=== PATIENT | male | born 1955 | race Caucasian/White ===

== ENCOUNTER 2017-03-08 18:55 | Observation (INO) | payer BC ==
[~2017-03-08] VITALS: Ht 177.8 cm; Wt 85.5 kg
--- NOTE | ~2017-03-08 | HEMODYNAMI ---
PATIENT:BURKE CORTEZ MEDICAL RECORD: [id number] : 55 LOCATION:[facility] D.2119 [facility]# [id number] ADMISSION DATE: 03/08/17 Generatedon:03/10/20179:33 Patient name: BURKE CORTEZ Patient #: [id number] : 1955 Date of study: 03/10/2017 Page: Of Hemodynamic Procedure Report Patient Data Patient Demographics Procedure consent was obtained First Name: BURKE Gender: Male Last Name: DANA : 1955 Middle Initial: R Age: 61 year(s) Patient #: [id number] Race: SSN: [id number] Additional ID: [id number] Contact details Address: [address] [place] [address] State: [place] City: [place] Zip code: [address] Past Medical History Allergies: No known allergies Admission Admission Data Admission Date: 03/08/2017 Admission Time: 22:22 Arrival Date: 03/10/2017 Arrival Time: 22:22 Admit Source: Other Insurance Payor: Private Room #: D.2119 health insurance Lab Results Lab Result Date: 03/10/2017 Lab Result Time: 0:00 Biochemistry Name Units Result Min Max BUN mg/dl 15 --(--*-)-- 7 18 Creatinine mg/dl 1.1 --(--*-)-- 0.6 1.3 CBC Name Units Result Min Max Hemoglobin g/dl 11.9 *-(----)-- 13.5 17.5 Procedure Procedure Types Cath Procedure Diagnostic Procedure LHC LHC w/Coronaries w/Grafts PCI Procedure SVG-BMS/BLANCO Initial Miscellaneous Procedures Moderate Sedation up to 30 minutes Procedure Description Procedure Date Procedure Date: 03/10/2017 Procedure Start Time: 9:12 Procedure End Time: 9:28 Procedure Staff Name Function Wyatt Franks MD Performing Physician Isidra Bagley RT Scrub Martina Khan RN Nurse Moira Bret RT Monitor Procedure Data Cath Procedure Fluoroscopy Diagnostic fluoroscopy Total fluoroscopy Time: 4.1 time: 4.1 min min Diagnostic fluoroscopy Total fluoroscopy dose: 603 dose: 603 mGy mGy Contrast Material Contrast Material Type Amount (ml) Isovue 370 100 Entry Location Entry Primary Successful Side Size Upsize Upsize Entry Closure Succes sful Closure Location (Fr) 1 (Fr) 2 (Fr) Remarks Device Remarks Femoral Right 5 Fr 6 Fr Exoseal artery Short Estimated blood loss: 5 ml Diagnostic catheters Device Type Used For End Catheter Placement Cordis 5Fr Pigtail LV Angiography Catheter (MP) Cordis 5Fr JL 4.0 Left Coronary Catheter (MP) Angiography Diagnostic Infinity 5Fr Multi-vessel AR 2 MOD catheter Angiography Procedure Complications No complications Procedure Medications Medication Administration Route Dosage Oxygen NC 2 l/min Lidocaine 2% added to field 20 Heparin Flush Bag added to field 2 bags (1000units/500ml NS) 0.9% NaCl I.V. 100 ml/hr Versed I.V. 1 mg Fentanyl I.V. 50 mcg Versed I.V. 1 mg Fentanyl I.V. 50 mcg Fentanyl I.V. 50 mcg Heparin Bolus I.V. 5000 units Effient P.O. 60 mg Hemodynamics Rest HGB: 11.9 (g/dl) Heart Rate: 63 (bpm) Pressure Samples Time Site Value (mmHg) Purpose Heart Use Rate(bpm) 9:14 LV 138/15,29 Snapshot 56 Snapshots Pre Cath Intra NCS Post Cath Vital Signs Time Heart Resp SPO2 etCO2 [id number] NIBP (mmHg) Rhythm Pain Sedation Rate (ipm) (%) (mmHg) (mmHg) Status Level (bpm) 8:43:09 62 21 97 0 0 156/71(126) NSR 0 (11) 10(A) , No pain 8:47:33 61 24 97 0 0 139/66(112) NSR 0 (11) 10(A) , No pain 8:51:53 59 19 96 0 0 128/64(96) NSR 0 (11) 10(A) , No pain 8:56:09 56 17 94 0 0 127/64(105) NSR 0 (11) 10(A) , No pain 9:00:27 59 16 96 0 0 128/56(98) NSR 0 (11) 10(A) , No pain 9:04:43 55 16 95 0 0 117/61(96) NSR 0 (11) 9(A) , No pain 9:08:55 59 18 95 0 0 114/65(89) NSR 0 (11) 9(A) , No pain 9:13:09 56 17 94 0 0 115/52(99) NSR 0 (11) 9(A) , No pain 9:18:12 62 16 94 0 0 116/60(94) NSR 0 (11) 9(A) , No pain 9:22:24 67 16 95 0 0 112/61(94) NSR 0 (11) 9(A) , No pain 9:26:34 62 17 96 0 0 114/62(87) NSR 0 (11) 10(A) , No pain Medications Time Medication Route Dose Verified Delivered Reason Notes Effectiveness by by 8:48:31 Oxygen NC 2 Wyatt Buffie used for l/min Golden Khan RN procedure 8:48:39 Lidocaine 2% added 20ml Wyatt Wyatt for local to vial Golden Franks MD anesthetic field 8:48:45 Heparin Flush added 2 Wyatt Wyatt used for Bag to bags Golden Franks MD procedure (1000units/500ml field NS) 8:48:54 0.9% NaCl I.V. 100 Wyatt Buffie Per physician ml/hr Golden Khan RN 8:58:48 Versed I.V. 1 mg Wyatt Buffie for sedation Golden Khan RN 8:58:55 Fentanyl I.V. 50 Wyatt Buffie for sedation mcg Golden Khan RN 9:06:39 Versed I.V. 1 mg Wyatt Buffie for sedation Golden Khan RN 9:06:43 Fentanyl I.V. 50 Wyatt Buffie for sedation mcg Golden Khan RN 9:17:00 Fentanyl I.V. 50 Wyatt Buffie for sedation mcg Golden Khan RN 9:22:22 Heparin Bolus I.V. 5000 Wyatt Buffie for verifie d units Golden Khan RN anticoagulation with dr franks 9:29:44 Effient P.O. 60 mg Wyatt Buffie for Golden Khan RN antiplatelet therapy Procedure Log Time Note 8:25:26 Informed consent obtained and on chart 8:29:20 Admit Source: Other 8:29:32 Arrival Date: 03/10/2017 10:22:00 PM 8:29:41 Insurance Payor : Private health insurance 8:30:10 Diagnostic Cath Status : Elective 8:30:31 Martina Khan RN sent for patient. Start room use. 8:30:33 Time tracking: Regular hours 8:30:38 Plan of Care:Hemodynamics will remain stable., Cardiac rhythm will remain stable., Comfort level will be maintained., Respiratory function will remain adequate., Patient/ family verbilizes understanding of procedure., Procedure tolerated without complication., Recovers from procedure without complications.. 8:41:54 Patient received from Med II to CCL 1 Alert and oriented. Tansferred to table in Supine position. 8:41:55 Warm blankets applied, and ricky hugger turned on for patient comfort. 8:41:55 Correct patient and procedure confirmed by team. 8:41:56 ECG and BP/O2 sat monitors applied to patient. 8:41:56 Vital chart was started 8:41:58 Baseline sample Acquired. 8:42:01 Rhythm: sinus rhythm 8:42:03 Full Disclosure recording started 8:42:34 H&P Date Dictated: 03/10/2017 New H&P dictated by physician.. 8:42:36 Pre-procedure instructions explained to patient. 8:42:36 Pre-op teaching completed and patient verbalized understanding. 8:42:37 Family in waiting room. 8:42:39 Patient NPO since Midnight. 8:42:48 Is the patient allergic to Iodine/contrast media? No. 8:42:50 Was the patient premedicated? No 8:43:01 Patient diabetic? No. 8:43:03 Is patient on blood thinner?No 8:43:08 Previous problem with sedation/anesthesia? No ? 8:43:10 Snore? Yes 8:43:12 Sleep apnea? No 8:43:14 Deviated septum? No 8:43:14 Opens mouth fully? Yes 8:43:15 Sticks out tongue? Yes 8:43:17 Airway obstruction? No ? 8:43:21 Dentures? No ? 8:43:25 Pre procedure: right dorsailis pedis pulse 1+ Palpable, but thready & weak; easily obliterated 8:43:27 Patient pain scale 0/10 ?. 8:43:35 IV patent on arrival in right antecubital with 0.9% NaCl at [facility]. 8:46:22 Lab Result : BUN 15 mg/dl 8:46:22 Lab Result : Hemoglobin 11.9 g/dl 8:46:22 Lab Result : Creatinine 1.1 mg/dl 8:46:27 Lab results completed and on chart. 8:46:34 Right groin area was prepped with chlora-prep and draped in sterile fashion 8:46:35 Alarms reviewed by R. N. 8:46:35 Sharps counted by scrub and verified by R.N. 8:48:31 Oxygen 2 l/min NC was administered by Martina Khan RN; used for procedure; 8:48:39 Lidocaine 2% 20ml vial added to field was administered by Wyatt Franks MD; for local anesthetic; 8:48:45 Heparin Flush Bag (1000units/500ml NS) 2 bags added to field was administered by Wyatt Franks MD; used for procedure; 8:48:54 0.9% NaCl 100 ml/hr I.V. was administered by Martina Khan RN; Per physician; 8:56:59 Physician arrived 8:56:59 --------ALL STOP TIME OUT------ 8:57:00 Final Timeout: patient, procedure, and site verified with staff and physician. All members of the team are in agreement. 8:57:02 Right groin site verified by team. 8:57:05 Physical assessment completed. ASA score P 2 - A patient with mild systemic disease as per Wyatt Franks MD. 8:57:10 Sedation plan: IV Moderate Sedation Versed, Fentanyl 8:57:14 Use device set Femoral Dx 8:57:15 Acist Syringe opened to sterile field. 8:57:16 Bag Decanter opened to sterile field. 8:57:16 Medline Cath Pack opened to sterile field. 8:57:17 Terumo 5Fr [place] Sheath opened to sterile field. 8:57:17 St Shoaib 260cm J .035 wire opened to sterile field. 8:57:19 Acist Hand Control opened to sterile field. 8:57:19 Acist Manifold opened to sterile field. 8:57:20 Diagnostic Infinity 5Fr Multipack catheter opened to sterile field. 8:57:20 Tegaderm 4 x 4 opened to sterile field. 8:58:06 Zero performed for pressure channel P1 8:58:48 Versed 1 mg I.V. was administered by Martina Khan RN; for sedation; 8:58:55 Fentanyl 50 mcg I.V. was administered by Martina Khan RN; for sedation; 9:01:30 Procedure type changed to Cath procedure, Diagnostic procedure, LHC, LHC w/Coronaries w/Grafts, PCI procedure, SVG-BMS/BLANCO Initial, Miscellaneous Procedures, Moderate Sedation up to 30 minutes 9:06:39 Versed 1 mg I.V. was administered by Martina Khan RN; for sedation; 9:06:43 Fentanyl 50 mcg I.V. was administered by Martina Khan RN; for sedation; 9:12:31 Procedure started. 9:12:35 Local anesthetic to right femoral artery with Lidocaine 2% by Wyatt Franks MD.INITIAL ACCESS ONLY 9:12:48 A 5 Fr sheath was inserted into the Right Femoral artery 9:13:35 A Cordis 5Fr Pigtail Catheter (MP) was advanced over the wire and used for LV Angiography. 9:14:39 LV hemodynamics recorded. 9:14:40 LV gram done using HOFF 9:14:43 Injector settings: Ml/sec: 5, Volume: 15, 9:14:53 EF : 20 % 9:15:00 Catheter removed. 9:15:05 A Cordis 5Fr JL 4.0 Catheter (MP) was advanced over the wire and used for Left Coronary Angiography. 9:17:00 Fentanyl 50 mcg I.V. was administered by Martina Khan RN; for sedation; 9:17:20 LCA angiography performed. 9:17:23 Injector settings: Ml/sec: 3, Volume: 6, 9:17:28 HUMPHREY angiography performed. 9:19:33 Catheter removed. 9:19:53 A Diagnostic Infinity 5Fr AR 2 MOD catheter was advanced over the wire and used for Multi-vessel Angiography. 9:20:11 SVG to RCA angiography performed. 9:20:25 Injector settings: Ml/sec: 3, Volume: 6, 9:20:40 Catheter removed. 9:21:11 Danielson Whisper J 300cm 0.014 guide wire opened to sterile field. 9:21:11 BrandBeautronic Launcher 6Fr AR 2.0 guide catheter opened to sterile field. 9:21:12 Merit BasixCompak Inflation Kit opened to sterile field. 9:21:13 Terumo 6Fr [place] Sheath opened to sterile field. 9:22:22 Heparin Bolus 5000 units I.V. was administered by Martina Khan RN; for anticoagulation; verified with dr franks 9:22:29 Sheath upsized to a 6 Fr Short. 9:22:34 6 Fr ar 2 guide catheter was inserted over the wire 9::40 whisper wire advanced. 9:24:20 Wire advanced across lesion. 9:24:44 Inflation Number: 1 A BrandBeautronic Resolute 2.25 X 14 stent was prepped and advanced across the Aorta Right -> Dist RCA. The stent was deployed at 17 MARKELL for 0:10 (min:sec). 9:25:36 Stent catheter was removed intact over wire. 9:25:37 Wire removed. 9:25:38 Guide catheter removed. 9:25:50 Cordis 6Fr Exoseal opened to sterile field. 9:26:07 Sheath removed intact; hemostasis achieved with Exoseal to the Right Femoral artery. 9:26:09 Procedure ended.(Physican Out) 9:27:06 Fluoroscopy time 04.10 minutes. 9:27:11 Flurop Dose total: 603 9:27:11 Fluoroscopy dose: 603 mGy 9:27:16 Contrast amount:Isovue 370 100ml. 9:27:18 Sharps counted by scrub and verified by R.N. 9:27:19 Insertion/operative site no bleeding no hematoma. 9:27:22 Post-op/insertion site Right Femoral artery dressed using a 4 x 4 and Tegaderm. 9:27:27 Post right femoral artery:stable 9:27:29 Post Procedure Pulses reassessed and unchanged 9:27:33 Post procedure rhythm: unchanged. 9:27:35 Estimated blood loss: 5 ml 9:27:38 Post procedure instruction explained to patient.Patient verbalizes understanding. 9:27:42 Patient needs reinforcement of post procedure teaching. 9:27:43 Procedure and supply charges have been captured, reviewed, submitted and are correct. 9:27:59 Procedure Complication : No complications 9:28:02 Vital chart was stopped 9:28:02 See physician's report for complete and final results. 9:28:05 Report given to Med II. 9:28:08 Patient transfered to [facility] II with Stretcher. 9:28:17 Procedure ended. 9:28:17 Full Disclosure recording stopped 9:28:24 ACC-PCI Only Patient was given prescriptions, or instructed by Wyatt Franks MD to start/continue the following medications upon discharge: Effient 9:28:26 End room use (Document Last) 9:29:44 Effient 60 mg P.O. was administered by Martina Khan RN; for antiplatelet therapy; Intervention Summary Intervention Notes Time ActionType Lesion and Equipment Action# Pressure Duration Attributes Used 9:24:44 Place stent Aorta Right Medtronic 1 17 00:10 -> Dist RCA Resolute 2.25 X 14 stent Device Usage Item Name Manufacture Quantity Catalog Hospital Part Current Minimal Lot# / Number Charge Number Stock Stock Serial# Code Acist Acist 1 09781 258828 313636 787210 20 Syringe Medical Systems Inc Bag Microtek 1 2002S 744040 03085 929595 5 [employer] Medline Cardinal 1 [id number] 774363 28038 558810 5 Cath Pack Health Terumo 5Fr Terumo 1 TWO100 234110 989433 335970 [address] Shoaib 1 775153 007211 768018 095591 30 260cm J .035 wire Acist Hand Acist 1 51836 068840 585903 977459 5 Control Medical Systems Inc Acist Acist 1 10902 362003 659945 531338 5 Manifold Medical Systems Inc Diagnostic Cardinal 1 [id number] 881199 47233 303850 30 Infinity Health 5Fr Multipack catheter Tegaderm 4 3M 1 1626W 898847 289141 532581 5 x 4 Cordis 5Fr Cardinal 1 824019 5 Pigtail Health Catheter (MP) Cordis 5Fr Cardinal 1 903714 5 JL 4.0 Health Catheter (MP) Diagnostic Cardinal 1 [id number] 112162 089016 922271 20 Infinity Health 5Fr AR 2 MOD catheter Danielson Danielson 1 [id number] 644683 967445 875681 5 Whisper J Vascular 300cm 0.014 guide wire Medtronic Medtronic 1 [id number] 533099 43788 188900 1 Launcher 6Fr AR 2.0 guide catheter Merit Merit 1 [id number] 972949 435838 351352 15 [facility] Medical Inflation Kit Terumo 6Fr Terumo 1 QYS913 272512 936673 380048 40 [place] Sheath Medtronic Medtronic 1 [id number] 663424 763756 8 [id number] Resolute 2.25 X 14 stent Cordis 6Fr Cardinal 1 EX600 726547 152996 906782 10 [facility] Health Signature Audit [place] Stage Time Signature Unsigned Intra-Procedure 03/10/2017 Isidra Bagley 9:33:48 AM RT(R) Signatures Monitor : Moira Queen Signature : RT Date : Time : [facility] [address] [address]
[~2017-03-08 18:55] MED LIST: BAYER CHEWABLE81 MG PO; BETAPACE 120 M120 MG NG; BETAPACE 120 M120 MG PO; BUMEX2 MG PO; COREG 3.1253.125 MG PO; EFFIENT10 MG PO; K-TAB10 MEQ PO; LISINOPRIL5 MG PO; ZOCOR20 MG PO
[2017-03-08 19:40] LABS: BASOPHILS 0.2 % (0-2); EOSINOPHILS 0.6 % (0-7); HEMATOCRIT 40.4 % (42.0-54.0); HEMOGLOBIN 14.2 g/dL (13.5-17.5); IMMATURE GRANULOCYTES 0.1 % (0-5); LYMPHOCYTES 7.1 % (15-50); MCH 31.7 pg (26.0-34.0); MCHC 35.1 g/dL (31.0-37.0); MCV 90.2 fL (80.0-100.0); MEAN PLATELET VOLUME 9.6 fL (7.4-10.4); MONOCYTES 5.4 % (2-11); NEUTROPHILS 86.6 % (40-80); PLATELET COUNT 198 10x3/uL (130-400); RBC 4.48 10x6/uL (4.20-6.10); RDW 12.6 % (11.5-14.5); WBC 13.8 10x3/uL (4.8-10.8)
[2017-03-08 19:57] LABS: ALBUMIN 3.8 g/dL (3.4-5.0); ANION GAP 14.3 mmol/L (8-16); BILIRUBIN - TOTAL 2.96 mg/dL (0.2-1.3); CALCIUM 9.2 mg/dL (8.5-10.1); CARBON DIOXIDE 26.5 mmol/L (21.0-32.0); CREATININE - SERUM 1.1 mg/dL (0.6-1.3); POTASSIUM - SERUM 3.8 mmol/L (3.5-5.1); PROTEIN - SERUM 7.5 g/dL (6.4-8.2)
[2017-03-08 20:34] LABS: APPEARANCE CLEAR (CLEAR); BILIRUBIN NEGATIVE (NEGATIVE); COLOR YELLOW (YELLOW); GLUCOSE NEGATIVE (NEGATIVE); KETONE LARGE mg/dL (NEGATIVE); LEUKOCYTE ESTERASE TRACE (NEGATIVE); NITRITE NEGATIVE (NEGATIVE); PROTEIN TRACE mg/dL (NEGATIVE); UROBILINOGEN NORMAL (NORMAL)
[2017-03-08 20:35] LABS: BACTERIA FEW /hpf (NONE SEEN); EPITHELIAL CELLS 0-5 /hpf (0-5); MUCUS <1+ /lpf (NONE SEEN); WHITE CELLS - URINE 0-5 /hpf (0-5)
[2017-03-08 21:08] LABS: CKMB 1.5 U/L (0.0-3.6); CREATINE KINASE 91 UL (21-232); TROPONIN-I 0.035 ng/mL (0.000-0.060)
[2017-03-08 23:18] LABS: TROPONIN-I 0.048 ng/mL (0.000-0.060)
[2017-03-09 00:45] VITALS: BP 173/71; Ht 177.8 cm; Wt 85.5 kg
[2017-03-09 05:32] VITALS: BP 138/57
--- NOTE | 2017-03-09 05:54 | NUR ---
RESTING WELL WITH EYES CLOSED, NO DISTRESS NOTED. CALL LIGHT IN REACH. WILL CONT TO MONITOR.
[2017-03-09 07:00] LABS: TROPONIN-I 0.06 ng/mL (0.000-0.060)
[2017-03-09 08:06] VITALS: BP 136/63
[2017-03-09 09:11] LABS: BASOPHILS 0.2 % (0-2); EOSINOPHILS 0.7 % (0-7); HEMATOCRIT 34.3 % (42.0-54.0); HEMOGLOBIN 11.9 g/dL (13.5-17.5); IMMATURE GRANULOCYTES 0.1 % (0-5); LYMPHOCYTES 14.9 % (15-50); MCH 31.4 pg (26.0-34.0); MCHC 34.7 g/dL (31.0-37.0); MCV 90.5 fL (80.0-100.0); MEAN PLATELET VOLUME 9.9 fL (7.4-10.4); MONOCYTES 12.4 % (2-11); NEUTROPHILS 71.7 % (40-80); PLATELET COUNT 179 10x3/uL (130-400); RBC 3.79 10x6/uL (4.20-6.10); RDW 12.5 % (11.5-14.5); WBC 8.1 10x3/uL (4.8-10.8)
[2017-03-09 09:17] LABS: CALC OSMOLALITY 282 mosm/kg (275-300); CALCIUM 8.2 mg/dL (8.5-10.1); CARBON DIOXIDE 25.6 mmol/L (21.0-32.0); CHLORIDE - SERUM 106 mmol/L (98-107); GLUCOSE 80 mg/dL (74-106); SODIUM 142 mmol/L (136-145); UREA NITROGEN 16 mg/dL (7-18); eGFR NON AFRICAN AMERICAN 81 mL/min (90-120)
[2017-03-09 09:19] LABS: POTASSIUM - SERUM 3.2 mmol/L (3.5-5.1)
--- NOTE | 2017-03-09 09:41 | NUR ---
CONSENTS SIGNED FOR [facility]. TELEMETRY SR. IV PATENT. WILL CONT. PLAN OF CARE.
[2017-03-09 12:40] VITALS: BP 157/57
[2017-03-09 13:34] LABS: TROPONIN-I 0.041 ng/mL (0.000-0.060)
[2017-03-09 16:12] VITALS: BP 146/71
--- NOTE | 2017-03-09 19:00 | NUR ---
INITIAL ROUNDS MADE. PT SITTING UP IN BED WITH FAMILY IN ROOM. DENIES NEEDS OR C/O AT THIS TIME. DISCUSSED PLAN OF CARE AND NPO AFTER MN. CONSENTS ON CHART. WILL CONT TO MONITOR.
[2017-03-09 20:00] VITALS: BP 177/82
[2017-03-10] VITALS: BP 149/68
--- NOTE | 2017-03-10 00:02 | NUR ---
EVENT HOST AT BEDSIDE FOR VS. NEEDS ADDRESSED. CALL LIGHT IN REACH. WILL CONT TO MONITOR.
[2017-03-10 04:00] VITALS: BP 144/68
[2017-03-10 07:58] VITALS: BP 144/74
--- NOTE | 2017-03-10 08:43 | NUR ---
PRE-OPS GIVEN. TO STAFFING ACCOUNT MANAGER BY BED.
--- NOTE | 2017-03-10 09:57 | NUR ---
BACK FROM MUSIC COORDINATOR. VS WNL. RIGHT GROIN STABLE WITHOUT BLEEDING OR HEMATOMA NOTED. WILL MONITOR.
--- NOTE | 2017-03-10 14:03 | NUR ---
BED REST UP. GROIN STABLE.
--- NOTE | 2017-03-10 14:21 | NUR ---
IV AND TELEMETRY DCD. DC PLANS GIVEN. UNDERSTANDING VOICED. LEAVING HOSP WITH AND SISTER INLAW. ESCORTED TO CAR BY W/C.
--- NOTE | 2017-03-11 08:06 | OP ---
PATIENT NAME: BURKE CORTEZ MEDICAL RECORD: [id number] :55 LOCATION:D.M2 D.2119 ADMISSION DATE:03/08/17 SURGEON: PRABHA LAY MD DATE OF OPERATION: 03/10/2017 PROCEDURES: 1. PTCA stent RCA through the patent vein graft. 2. Left heart catheterization. 3. Selective coronary angiography. 4. Vein graft angiography. 5. HUMPHREY angiography. 6. Left ventriculogram. INDICATION: Angina and coronary artery disease. PROCEDURE IN DETAIL: After informed consent was obtained and after detailed explanation of risks, benefits as well as alternative therapies, the patient elected to proceed with angiogram and angioplasty. The right femoral area was prepped and draped in normal sterile fashion. The right femoral artery was cannulated via modified Seldinger technique with placement of 6-Setswana sheath. All catheters exchanged through this sheath. FINDINGS: Left ventriculogram was performed in standard 30-degree HOFF view reveals global hypokinesis throughout all segments. Overall ejection fraction is 20%. SELECTIVE CORONARY ANGIOGRAPHY: 1. Left main is with no significant angiographic disease. Previously placed stent is widely patent. This feeds a large LAD diagonal system that is widely patent. 2. Left anterior descending is totally occluded after the diagonal system. 3. HUMPHREY to the LAD is totally occluded. 4. Left circumflex has total occlusion in the mid vessel. 5. Vein graft to the circumflex is closed as well. 6. Right coronary is closed in the mid vessel. 7. Vein graft to the right coronary is patent; however, the distal right coronary PDA has a 90% stenosis after the vein graft. PTCA STENT OF THE RIGHT CORONARY: Through the patent vein graft, the stent used was a 2.25 x 14 mm Resolute taken to 17 atmospheres. Result was 0% residual stenosis. OVERALL IMPRESSION: Successful percutaneous transluminal coronary angioplasty stent of the right coronary artery through the patent vein graft going from 90% initial stenosis to 0% residual. TRANSINT:[id number] Voice Confirmation ID: [id number] DOCUMENT ID: [id number] OPERATIVE REPORT [id number] BURKE CORTEZ PRABHA LAY MD at 0806 CC: [id number] DICTATION DATE: 03/10/17 0932 TEACHER VOCATIONAL TRAINING: 03/10/17 1619 DIS IN 03/10/17 [facility] [address] [facility] [place] [address]
--- NOTE | 2017-03-11 08:06 | DS ---
PATIENT:BURKE SOLANO :55 MEDICAL RECORD: [id number] DISCHARGE SUMMARY ADMISSION DATE: 03/08/17 DISCHARGE DATE: 03/10/17 DIAGNOSES: 1. Angina. 2. Coronary artery disease. 3. Percutaneous transluminal coronary angioplasty stent right coronary artery this admission. 4. Cardiomyopathy, ischemic. 5. Chronic systolic dysfunction. 6. Shortness of breath, dyspnea on exertion. 7. Paroxysmal atrial fibrillation. 8. Hypertension. 9. Hyperlipidemia. HOSPITAL COURSE: Mr. Solano presents with anginal symptomatology, shortness of breath, found to have significant stenosis of the RCA after the patent vein graft. Otherwise, his coronary angiography was unchanged from previous intervention. Previous stents were widely patent. He underwent successful PTCA stent of the RCA through the vein graft, had no further anginal symptomatology. He was discharged home with no change in medications as he is already on Effient and aspirin. TRANSINT:[id number] Voice Confirmation ID: [id number] DOCUMENT ID: [id number] PRABHA LAY MD at 0806 CC: [id number] DICTATION DATE: 03/10/17929 SIGHTSEEING GUIDE: 03/11/17 0039 DIS IN 03/10/17 [facility] [address] [place] [address]
== END 2017-03-10 14:31 | disposition home or self-care (01) ==
LOC: D.ER 18:55 → OBSVTIME 22:22 → D.M2 22:22
PROVIDERS: Family Medicine; Nurse Practitioner Acute Care; ADMIT Internal Medicine Interventional Cardiology
DX: I25.119 Atherosclerotic heart disease of native coronary artery with unspecified angina pectoris (principal); Z95.1 Presence of aortocoronary bypass graft; I25.5 Ischemic cardiomyopathy; I48.0 Paroxysmal atrial fibrillation; E78.5 Hyperlipidemia, unspecified; I11.0 Hypertensive heart disease with heart failure; I50.22 Chronic systolic (congestive) heart failure; N39.0 Urinary tract infection, site not specified; E80.6 Other disorders of bilirubin metabolism; Z87.891 Personal history of nicotine dependence

== ENCOUNTER → 2018-07-21 07:33 | Outpatient (CLI) | payer MEDICAID ==
[2017-03-09 00:45] VITALS: BMI 27.0
--- NOTE | ~2018-07-21 | ST ---
PATIENT:BURKE CORTEZ MEDICAL RECORD: [id number] SEX: M LOCATION:[facility] ORDER #: ADMISSION DATE: 07/21/18 AGE OF PATIENT: 63 REFERRING PHYSICIAN: INTERPRETING PHYSICIAN: PRABHA LAY MD DATE OF SERVICE: 07/21/2018 PROCEDURE: Nuclear stress test. INDICATION: Chest pain. He was exercised on standard Lexiscan protocol with 27.7 mCi injected at peak stress, 8.4 mCi were injected previously for rest images. FINDINGS: Gated SPECT reveals dilated cardiomyopathy, markedly reduced ejection fraction at 20%. SPECT IMAGING: Cardiolite was used as myocardial perfusion agent. There is a fixed perfusion defect anteriorly compatible with the previous anterior myocardial infarction. There is a fixed perfusion defect inferoapically compatible with an inferoapical myocardial infarction; however, there is reversibility throughout the lateral segments. This includes the basal, mid, apical lateral segments. The degree of reversibility is moderate to severe. The amount of myocardial involved between all defects is very large. OVERALL IMPRESSION: This is markedly abnormal nuclear stress test, previous anterior myocardial infarction, previous inferior myocardial infarction, ongoing ischemia laterally suggestive of multivessel coronary artery disease. We will proceed with coronary angiography as followup study. TRANSINT:[id number] Voice Confirmation ID: [id number] DOCUMENT ID: [id number] PRABHA LAY MD at 1950 CC: [id number] DICTATION DATE: 07/21/18 1254 USER INTERFACE ARTIST: 07/21/18 1324 DEP CLI 07/21/18 [place] [id number] [place] [id number]
[~2018-07-21 07:33] MED LIST changes: +PLAVIX75 MG PO
== END | disposition home or self-care (01) ==
LOC: D.NM 07:33
DX: I20.0 Unstable angina (principal); I25.10 Atherosclerotic heart disease of native coronary artery without angina pectoris

== ENCOUNTER 2018-08-02 08:39 | Outpatient (CLI) | payer MEDICAID ==
[~2018-08-02] VITALS: Ht 177.8 cm; Wt 86.4 kg
--- NOTE | ~2018-08-02 | OP ---
PATIENT NAME: BURKE CORTEZ MEDICAL RECORD: [id number] :55 LOCATION:D.CAT ADMISSION DATE: SURGEON: PRABHA LAY MD DATE OF OPERATION: 08/03/2018 PROCEDURES: 1. PTCA stent LAD. 2. Selective coronary angiography. INDICATION: Angina and coronary artery disease. PROCEDURE IN DETAIL: After informed consent was obtained and after a detailed description of risks, benefits as well as alternative therapies, the patient elected to proceed with angiogram and angioplasty. The left femoral area was prepped and draped in normal sterile fashion. Left femoral artery was cannulated via modified Seldinger technique with placement of 6-Haitian sheath. All catheters exchanged through this sheath. FINDINGS: The LAD diagonal has a 70% to 80% stenosis in the proximal vessel. This was addressed with a 2.5 x 15 mm [place] stent. Result was 0% residual stenosis. OVERALL IMPRESSION: Successful percutaneous transluminal coronary angioplasty stent of the left anterior descending diagonal going from 80% initial stenosis to 0% residual. TRANSINT:[id number] Voice Confirmation ID: [id number] DOCUMENT ID: [id number] PRABHA LAY MD at 1729 CC: [id number] DICTATION DATE: 08/03/18 1234 CANDY MAKER HELPER: 08/03/18 1239 DEP CLI 08/03/[address] [address]
--- NOTE | ~2018-08-02 | HEMODYNAMI ---
PATIENT:BURKE CORTEZ MEDICAL RECORD: [id number] : 55 LOCATION:[facility] D.2104 [facility]# [id number] ADMISSION DATE: 08/02/18 Generatedon:08/03/201812:33 Patient name: BURKE CORTEZ Patient #: [id number] : 1955 Date of study: 08/03/2018 Page: Of Hemodynamic Procedure Report Patient Data Patient Demographics Procedure consent was obtained First Name: BURKE Gender: Male Last Name: DANA : 1955 Middle Initial: R Age: 63 year(s) Patient #: [id number] Race: SSN: [id number] Additional ID: [id number] Contact details Address: [address] [place] [address] State: [place] City: [place] Zip code: [address] Past Medical History Allergies: No known allergies Admission Admission Data Admission Date: 08/02/2018 Admission Time: 8:39 Admit Source: Other Room #: D.2104 Lab Results Lab Result Date: 08/02/2018 Lab Result Time: 10:15 Biochemistry Name Units Result Min Max BUN mg/dl 17 --(---*)-- 7 18 Creatinine mg/dl 1.2 --(---*)-- 0.6 1.3 CBC Name Units Result Min Max Hematocrit % 43.3 --(*---)-- 42 54 Hemoglobin g/dl 15.6 --(--*-)-- 13.5 17.5 Procedure Procedure Types Cath Procedure PCI Procedure Coronary Stent Coronary Stent Initial Procedure Description Procedure Date Procedure Date: 08/03/2018 Procedure Start Time: 12:26 Procedure End Time: 12:33 Procedure Staff Name Function Bobby Davalos RN Nurse Moira Queen RT Monitor Davina Hoang RT Scrub Wyatt Franks MD Performing Physician Procedure Data Cath Procedure Fluoroscopy Diagnostic fluoroscopy Total fluoroscopy Time: 1.3 time: 1.3 min min Diagnostic fluoroscopy Total fluoroscopy dose: 112 dose: 112 mGy mGy Contrast Material Contrast Material Type Amount (ml) Isovue 300 27 Entry Location Entry Primary Successful Side Size Upsize Upsize Entry Closure Succes sful Closure Location (Fr) 1 (Fr) 2 (Fr) Remarks Device Remarks Femoral Left 6 Fr Exoseal artery Short Estimated blood loss: 10 ml Procedure Complications No complications Procedure Medications Medication Administration Route Dosage 0.9% NaCl I.V. 100 ml/hr Oxygen etCO2 Nasal cannula 2 l/min Heparin Flush Bag added to field 2 bags (1000units/500ml NS) Lidocaine 2% added to field 20 Plavix P.O. 75 mg Versed I.V. 2 mg Fentanyl I.V. 100 mcg Heparin Bolus I.V. 4000 units Versed I.V. 1 mg Hemodynamics Rest HGB: 15.6 (g/dl) Heart Rate: 57 (bpm) Snapshots Pre Cath Intra NCS Post Cath Vital Signs Time Heart Resp SPO2 etCO2 NIBP (mmHg) Rhythm Pain Sedation Rate (ipm) (%) (mmHg) Status Level (bpm) 12:14:31 57 19 99 41.9 125/61(98) NSR 0 (11) 10(A) , No pain 12:19:14 60 12 99 35.9 120/65(101) NSR 0 (11) 10(A) , No pain 12:23:56 60 13 99 38.2 112/60(94) NSR 0 (11) 10(A) , No pain 12:28:37 62 13 98 36 115/60(91) NSR 0 (11) 9(A) , No pain 12:33:19 64 15 99 31.4 116/56(90) NSR 0 (11) 9(A) , No pain Medications Time Medication Route Dose Verified Delivered Reason Notes Effectiveness by by 12:12:52 0.9% NaCl I.V. 100 Bobby Bobby Per physician ml/hr Susnanah Davalos RN RN 12:13:08 Oxygen etCO2 2 Bobby Bobby Per physician Nasal l/min Susannah Davalos cannula RN RN 12:13:20 Heparin Flush added 2 Bobby Bobby used for Bag to bags Susannah Davalos procedure (1000units/500ml field RN RN NS) 12:13:30 Lidocaine 2% added 20ml Bobby Bobby for local to vial Susannah Davalos anesthetic field RN RN 12:13:53 Plavix P.O. 75 mg Bobby Bobby for [place] Davalos antiplatelet RN RN therapy 12:26:10 Versed I.V. 2 mg Bobby Bobby for sedation Susannah Davalos RN RN 12:26:19 Fentanyl I.V. 100 Bobby Bobby for sedation mcg Susannah Davalos RN RN 12:28:24 Heparin Bolus I.V. 4000 Bobby Bobby for units Susannah Davalos anticoagulation RN RN 12:28:35 Versed I.V. 1 mg Bobby Bobby for sedation Susannah Davalos RN anthropologist Log Time Note 12:12:52 0.9% NaCl 100 ml/hr I.V. was administered by Bobby Davalos RN; Per physician; 12:13:08 Oxygen 2 l/min etCO2 Nasal cannula was administered by Bobby Davalos RN; Per physician; 12:13:20 Heparin Flush Bag (1000units/500ml NS) 2 bags added to field was administered by Bobby Davalos RN; used for procedure; 12:13:30 Lidocaine 2% 20ml vial added to field was administered by Bobby Davalos RN; for local anesthetic; 12:13:35 Vital chart was started 12:13:53 Plavix 75 mg P.O. was administered by Bobby Davalos RN; for antiplatelet therapy; 12::53 Diagnostic Cath status Elective 12:13:55 Moira Queen RT(R) sent for patient. Start room use. 12:13:56 Time tracking: Regular hours (M-F 7:00 - 5:00) 12:14:06 Plan of Care:Hemodynamics will remain stable., Cardiac rhythm will remain stable., Comfort level will be maintained., Respiratory function will remain adequate., Patient/ family verbilizes understanding of procedure., Procedure tolerated without complication., Recovers from procedure without complications.. 12:14:18 Patient received from Med II to CCL 1 Alert and oriented. Tansferred to table in Supine position. 12:14:20 Warm blankets applied, and ricky hugger turned on for patient comfort. 12:14:20 Correct patient and procedure confirmed by team. 12:14:22 Signed procedure consent form obtained from patient. 12:14:23 ECG and BP/O2 sat monitors applied to patient. 12:14:24 Baseline sample Acquired. 12:14:29 Rhythm: sinus rhythm 12:14:32 Full Disclosure recording started 12:14:42 H&P Date Dictated: 08/02/2018 Within 30 days and on chart.. 12:14:44 Pre-procedure instructions explained to patient. 12:14:48 Family in waiting room. 12:14:51 Patient NPO since Midnight. 12:15:03 Patient allergic to No known allergies 12:15:07 Is the patient allergic to Iodine/contrast media? No. 12:15:34 Was the patient premedicated? Yes 12:15:36 Is patient on blood thinner?Yes 12:15:39 ACC The patient was administered the following blood thiners within the last 24 hours: ACCPlavix 12:15:45 Snore? Yes 12:15:46 Sleep apnea? No 12:15:52 Dentures? Yes in tight 12:15:57 Patient pain scale 0/10 ?. 12:16:06 IV patent on arrival in left forearm with 0.9% NaCl at O. 12:16:11 Lab results completed and on chart. 12:16:18 Left groin area was prepped with chlora-prep and draped in sterile fashion 12:16:19 Alarms reviewed by R. N. 12:16:19 Sharps counted by scrub and verified by R.N. 12:16:21 Physician paged 12:18:04 Use device set Femoral Dx 12:18:40 ACIST Syringe (04856) opened to sterile field. 12:18:41 Bag Decanter () opened to sterile field. 12:18:42 Medline Cath Pack ([id number]) opened to sterile field. 12:18:44 ACIST Hand Control (82449) opened to sterile field. 12:18:44 ACIST Manifold (21146) opened to sterile field. 12:18:46 Tegaderm 4 x 4 (1626W) opened to sterile field. 12:18:47 PERCUTANEOUS ENTRY 19GA needle opened to sterile field. 12:18:50 SHEATH Prelude 6Fr 0.035 ([id number]-[id number]) opened to sterile field. 12:18:50 INFLATOR Merit BasixCompak (AG1395) opened to sterile field. 12:18:51 CHOICE PT Extra Support 182cm wire ([id number]) opened to sterile field. 12:: Physician arrived 12:: --------ALL STOP TIME OUT------ 12::42 Final Timeout: patient, procedure, and site verified with staff and physician. All members of the team are in agreement. 12::44 Left groin site verified by team. 12::48 Physical assessment completed. ASA score P 2 - A patient with mild systemic disease as per Bobby Davalos RN. 12:: Sedation plan: IV Moderate Sedation Medication:Versed, Fentanyl 12:: Procedure started. 12:: Versed 2 mg I.V. was administered by Bobby Davalos RN; for sedation; : Local anesthetic to left femerol artery with Lidocaine 2% by Wyatt Franks MD.INITIAL ACCESS ONLY 12:: Fentanyl 100 mcg I.V. was administered by Bobby Davalos RN; for sedation; :: A 6 Fr Short sheath was inserted into the Left Femoral artery 12:: GUIDE 6FR XBLAD 3.5 catheter ([id number]) opened to sterile field. 12::09 6 Fr XBLAD 3.5 guide catheter was inserted over the wire 12::24 Heparin Bolus 4000 units I.V. was administered by Bobby Davalos RN; for anticoagulation; 12::35 Versed 1 mg I.V. was administered by Bobby Davalos RN; for sedation; ::21 Place stent Inflation Number: 1 A MICHELINE RX 2.5 x 15 stent ([id number]) was prepped and advanced across the Dist LAD. The stent was deployed at 13 MARKELL for 0:09 (min:sec). 12::30 EXOSEAL 6Fr (EX600) opened to sterile field. 12::53 Wire removed. 12::53 Guide catheter removed. 12::03 Sheath removed intact; hemostasis achieved with Exoseal to the Left Femoral artery. :: Procedure ended.(Physican Out) :: Fluoroscopy time 01.30 minutes. :: Flurop Dose total: 112 :: Fluoroscopy dose: 112 mGy : Contrast amount:Isovue 300 27ml. 12:31:34 Sharps counted by scrub and verified by R.N. 12:31:35 Insertion/operative site no bleeding no hematoma. 12:31:38 Post Procedure Pulses reassessed and unchanged 12:31:59 Post-procedure physical assessment completed. ASA score P 2 - A patient with mild systemic disease as per Bobby Davalos RN. 12:32:03 Post procedure rhythm: sinus rhythm 12:32:07 Estimated blood loss: 10 ml 12:32:10 Post procedure instruction explained to patient.Patient verbalizes understanding. 12:32:25 Procedure type changed to Cath procedure, PCI procedure, Coronary Stent, Coronary Stent Initial 12:32:27 Procedure and supply charges have been captured, reviewed, submitted and are correct. 12:32:52 Procedure Complication : No complications 12:32:56 Vital chart was stopped 12:32:57 See physician's report for complete and final results. 12:32:58 Report given to Pre/Post Procedure Room. 12:33:02 Patient transfered to Pre/Post Procedure Room with Stretcher. 12:33:04 Procedure ended. 12:33:04 Full Disclosure recording stopped 12:33:07 End room use (Document Last) 12:33:11 ACC-PCI Only Patient was given prescriptions, or instructed by Wyatt Franks MD to start/continue the following medications upon discharge: Plavix Intervention Summary Intervention Notes Time ActionType Lesion and Equipment Used Action# Pressure Duration Attributes 12:29:21 Place stent Dist LAD MICHELINE RX 2.5 x 1 13 00:09 15 stent ([id number]) Device Usage Item Name Manufacture Quantity Catalog Number Hospital Part Current Minimal Lot# / Charge Number Stock Stock Serial# Code ACIST Syringe Acist 1 30740 285220 399584 671621 20 (21843) Medical Systems Inc Bag Decanter Microtek 1 2001S 570887 39330 984341 5 (2001S) Medical Inc. Medline Cath Cardinal 1 [id number] 688062 75483 699870 5 Pack Health ([id number]) ACIST Hand Acist 1 46363 835947 860416 696860 5 Control (23765) Medical Systems Inc ACIST Manifold Acist 1 18021 693379 909278 441244 5 (07915) Medical Systems Inc Tegaderm 4 x 4 3M 1 1626W 296742 261804 468969 5 (1626W) PERCUTANEOUS Cook Medical 1 [id number] 187323 192152 5 ENTRY 19GA needle SHEATH Prelude Merit 1 [id number] 438400 1290225 451281 5 6Fr 0.035 Medical (COP-6R-86-035) INFLATOR Merit Merit 1 DJ5799 905486 942612 798494 15 BasixCompak Medical (JJ3782) CHOICE PT Extra [place] 1 [id number] 477360 868162 831145 5 Support 182cm Scientific wire ([id number]) GUIDE 6FR XBLAD Cardinal 1 [id number] 513823 299987 022355 10 3.5 catheter Health (83337320) MICHELINE RX 2.5 x Medtronic 1 [id number] 888609 8142171 640895 5 [id number] 15 stent ([id number]) EXOSEAL 6Fr Cardinal 1 EX600 809800 852624 809977 10 (EX600) Health Signature Audit [place] Stage Time Signature Unsigned Intra-Procedure 08/03/2018 Moira Queen 12:33:36 PM RT(R) Signatures Monitor : Moira Queen Signature : RT Date : Time : [address] [place] [address]
--- NOTE | ~2018-08-02 | DS ---
PATIENT:BURKE SOLANO :55 MEDICAL RECORD: [id number] DISCHARGE SUMMARY ADMISSION DATE: 08/02/18 DISCHARGE DATE: 08/03/18 DATE OF DISCHARGE: 08/03/2018. DIAGNOSES: 1. Unstable angina. 2. Coronary artery disease. 3. PTCA stent vein graft to RCA as well as LAD diagonal this admission. HISTORY: Mr. Solano presents with anginal symptomatology, found to have 2-vessel disease of the LAD diagonal and vein graft to the RCA, underwent successful PTCA stent of both territories, was discharged home with the addition of aspirin and Plavix to his medical regimen. He will follow up with [facility] in 1 month. TRANSINT:[id number] Voice Confirmation ID: [id number] DOCUMENT ID: [id number] PRABHA LAY MD at 1729 CC: [id number] DICTATION DATE: 08/03/18 1232 NURSE CARE MANAGER: 08/03/18 1237 DEP CLI 08/03/18 [id number] [place] [address]
--- NOTE | ~2018-08-02 | OP ---
PATIENT NAME: BURKE CORTEZ MEDICAL RECORD: [id number] :55 LOCATION:D.M2 D.2104 ADMISSION DATE: SURGEON: PRABHA LAY MD DATE OF OPERATION: 08/02/2018 PROCEDURES: 1. Stent placement, iliac right. 2. HIDE OR SKIN BUFFER iliac right. 3. Aortofemoral runoff. 4. Abdominal aortography. INDICATION: Claudication and peripheral vascular disease. PROCEDURE IN DETAIL: After informed consent was obtained and after a detailed description of risks, benefits as well as alternative therapies, the patient elected to proceed with angiogram and angioplasty. The right femoral area was prepped and draped in normal sterile fashion. Right femoral artery was cannulated via modified Seldinger technique with placement of 6-Danish sheath. All catheters exchanged through this sheath. FINDINGS: The abdominal aortography was performed. The catheter was pulled down for aortofemoral runoff. Abdominal aortography reveals no significant abdominal aortic disease, no dissection or aneurysm formation. RIGHT LEG: A. Iliac: The common iliac has 95% stenosis proximally, otherwise [id number]-pwpmyozv irregularities. B. Femoral system: The common and deep femoral are widely patent. Superficial femoral has 70% stenosis in the mid distal vessel. C. Popliteal and infrapopliteal vessels are patent with good 3-vessel runoff to the foot, although mildly diffusely diseased. LEFT LEG: A. Iliac: The common internal and external iliacs have moderate irregularities, but no flow-limiting stenosis. B. Femoral system: The common superficial and deep femoral have mild to moderate irregularities, but no flow-limiting stenosis. C. Popliteal and infrapopliteal vessels are widely patent with good 3-vessel runoff to the foot. HIDE OR SKIN BUFFER STENT OF THE RIGHT ILIAC: The balloon and stent used was a Cordis Candie 7 x 29. Result was 0% residual stenosis. OVERALL IMPRESSION: Successful percutaneous transluminal angioplasty stent of the right iliac going from 95% initial stenosis to 0% residual. TRANSINT:[id number] Voice Confirmation ID: [id number] DOCUMENT ID: [id number] OPERATIVE REPORT [id number] BURKE CORTEZ PRABHA JONES MD at 1234 CC: [id number] DICTATION DATE: 08/02/18 1157 DAIRY TECHNOLOGIST: 08/02/18 1218 [facility] [address] [place] [address]
--- NOTE | ~2018-08-02 | HP ---
PATIENT: BURKE SOLANO MEDICAL RECORD: [id number] ACCOUNT: [id number] LOCATION:[facility] : 55 ADMISSION DATE: 08/02/18 PCP: LEON ZAMORA MD HISTORY AND PHYSICAL EXAMINATION DIAGNOSES: 1. Angina. 2. Coronary disease. 3. Cardiomyopathy. 4. Claudication. 5. Peripheral vascular disease. 6. Hypertension. 7. Hyperlipidemia. HISTORY: Mr. Solano presents with anginal symptomatology. Nuclear stress test reveals significant inducible ischemia with an ejection fraction of 20%. He is now brought for cardiac catheterization. As well, he has claudication, right leg greater than left. REVIEW OF SYSTEMS: The patient reports easy bruising but reports no swollen glands. The patient reports no fever, no night sweats, no significant weight gain, no significant weight loss. No significant exercise tolerance. The patient reports no dry eyes, no irritation, no vision change. Patient reports no difficulty hearing and no ear pain. Patient reports no frequent nose bleeds or nose and sinus problems. Patient reports on arm pain on exertion. No shortness of breath while lying down. No history of heart murmur. Patient reports no cough, no wheezing or coughing up blood. Patient reports no abdominal pain, no vomiting. Normal appetite. No diarrhea and not vomiting blood. No nausea and no constipation. Patient reports no incontinence. No difficulty urinating. No hematuria. No increased frequency. Patient reports no muscle aches. No weakness, no arthralgias, no back pain. No swelling of the extremities. Patient reports no abnormal mole, no jaundice, no rashes. Reports no loss of consciousness. No weakness and no numbness. No seizures, dizziness, or headaches. The patient reports no depression, no sleep disturbance, feeling safe in a relationship and no alcohol abuse. Patient reports on fatigue. Reports no runny nose or sinus pressure. No itching, no hives, and no frequent sneezing. PHYSICAL EXAMINATION: GENERAL APPEARANCE: Well-nourished, well-developed, appears stated age. Level of distress, comfortable. PSYCHIATRIC: Mental status, alert, normal affect. Orientation, oriented to time, place and person. EYES: Lids and conjunctiva, noninjected. No discharge, no pallor. ENT: Lips, teeth, gums, normal dentition. Oropharynx, no cyanosis, no pallor. NECK: Carotid arteries, bilateral normal upstroke, no bruits, no thrills. JUGULAR VEINS: No jugular venous pressure or distention. CERVICAL LYMPH NODES: Nontender, nonenlarged. THYROID: Not enlarged. Nontender. No nodules. LUNGS: Respiratory effort, unlabored. CHEST: Normal curvature. No thoracic deformity. No chest wall tenderness. Percussion, resonant. Auscultation, clear. No wheezes, no rales, no rhonchi. CARDIOVASCULAR: Precordial exam, nondisplaced. No heaves or pericardial thrills. Rate and rhythm, regular. Heart sounds, normal S1, normal S2. No S3, no gallop, no rub. Systolic murmur, not heard. Diastolic murmur, not heard. HISTORY AND PHYSICAL [id number] BURKE SOLANO EXTREMITIES: No cyanosis, no edema. Peripheral pulses, full and equal in all extremities, except as noted. No bruits appreciated. ABDOMEN: Soft, nondistended. Normal aorta. No bruit. Nontender. No masses. Liver, nontender, no hepatomegaly. Spleen, nontender, no splenomegaly. MUSCULOSKELETAL: No joint tenderness. No joint swelling. No erythema. NEUROLOGICAL: Normal gait, normal strength, normal tone. SKIN: Warm and dry. OVERALL IMPRESSION: Anginal symptomatology with a markedly abnormal nuclear stress test. We will proceed with coronary angiography. Also proceed with aortofemoral runoff due to claudication symptomatology. TRANSINT:[id number] Voice Confirmation ID: [id number] DOCUMENT ID: [id number] PRABHA LAY MD at 1729 CC: [id number] DICTATION DATE: 08/02/18 115 WHITE SHOE RAGGER: 08/02/18 1228 DEP CLI 08/03/18 [id number] [place] [address]
--- NOTE | ~2018-08-02 | HEMODYNAMI ---
PATIENT:BURKE CORTEZ MEDICAL RECORD: [id number] : 55 LOCATION:[facility] ADMISSION DATE: 08/02/18 Generatedon:08/02/201812:01 Patient name: BURKE CORTEZ Patient #: [id number] : 1955 Date of study: 08/02/2018 Page: Of Hemodynamic Procedure Report Patient Data Patient Demographics Procedure consent was obtained First Name: BURKE Gender: Male Last Name: DANA : 1955 Middle Initial: R Age: 63 year(s) Patient #: [id number] Race: SSN: [id number] Additional ID: [id number] Contact details [address]: [address] [place] [address] State: [place] City: [place] Zip code: [address] Past Medical History Allergies: No known allergies Admission Admission Data Admission Date: 08/02/2018 Admission Time: 8:39 Admit Source: Other Lab Results Lab Result Date: 08/02/2018 Lab Result Time: 10:15 Biochemistry Name Units Result Min Max BUN mg/dl 17 --(---*)-- 7 18 Creatinine mg/dl 1.2 --(---*)-- 0.6 1.3 CBC Name Units Result Min Max Hematocrit % 43.3 --(*---)-- 42 54 Hemoglobin g/dl 15.6 --(--*-)-- 13.5 17.5 Procedure Procedure Types Cath Procedure Diagnostic Procedure LHC LH w/Coronaries w/Grafts FFR/IVUS Intra-Coronary IVUS Initial Sedation Charges Moderate Sedation up to 15 minutes PCI Procedure AMI/SVG/INVESTIGATIVE AGENT PTCA or Stent SVG-BMS/BLANCO Initial Peripheral Cath Diagnostic Procedure Boy'S Adviser Peripheral Procedures Ffkxq-Bllvtmq-Jxq-Off Peripheral vascular Intervention Stent Stent Iliac w/plasty Initial Procedure Description Procedure Date Procedure Date: 08/02/2018 Procedure Start Time: 11:27 Procedure End Time: 11:59 Procedure Staff Name Function Wyatt Franks MD Performing Physician Abraham King RT Monitor Davina Hoang RT Scrub Red Villanueva RT Airframe And Powerplant Mechanic Bobby Davalos RN Nurse Procedure Data Cath Procedure Fluoroscopy Diagnostic fluoroscopy Total fluoroscopy Time: 6.4 time: 6.4 min min Diagnostic fluoroscopy Total fluoroscopy dose: dose: 1007 mGy 1007 mGy Contrast Material Contrast Material Type Amount (ml) Isovue 300 182 Entry Location Entry Primary Successful Side Size Upsize 1 Upsize Entry Closure Valencai ccessful Closure Location (Fr) (Fr) 2 (Fr) Remarks Device Remarks Femoral Right 5 Fr 6 Fr 6 Fr Exoseal artery Mid-Length Short Estimated blood loss: 10 ml Diagnostic catheters Device Type Used For End Catheter Placement MULTIPACK 3DRC 5Fr Procedure catheter MULTIPACK Pigtail 5 Fr Procedure catheter MULTIPACK JL 4.0 5Fr Procedure catheter DIAGNOSTIC AR 2 MOD 5 Fr Procedure catheter ([id number]) Procedure Complications No complications Procedure Medications Medication Administration Route Dosage 0.9% NaCl I.V. bolus 100 ml/hr Oxygen etCO2 Nasal cannula 2 l/min Heparin Flush Bag added to field 2 bags (1000units/500ml NS) Lidocaine 2% added to field 20 Versed I.V. 2 mg Fentanyl I.V. 100 mcg Benadryl I.V. 50 mg Heparin Bolus I.V. 5000 units Hemodynamics Rest HGB: 15.6 (g/dl) Heart Rate: 54 (bpm) Snapshots Pre Cath Intra NCS Post Cath Vital Signs Time Heart Resp SPO2 etCO2 NIBP (mmHg) Rhythm Pain Sedation Rate (ipm) (%) (mmHg) Status Level (bpm) 10:52:00 54 10 100 16.5 157/75(126) NSR 0 (11) 10(A) , No pain 10:56:49 57 18 100 36.8 160/75(121) NSR 0 (11) 10(A) , No pain 11:01:37 55 17 100 28.5 146/73(123) NSR 0 (11) 10(A) , No pain 11:06:26 55 17 100 33 148/71(121) NSR 0 (11) 10(A) , No pain 11:11:13 55 16 100 36 145/76(120) NSR 0 (11) 10(A) , No pain 11:16:43 55 15 100 32.2 152/61(115) NSR 0 (11) 10(A) , No pain 11:21:34 55 16 100 32.2 154/74(125) NSR 0 (11) 10(A) , No pain 11:26:23 54 15 99 39.8 149/73(124) NSR 0 (11) 9(A) , No pain 11:31:09 57 19 95 0 128/60(93) NSR 0 (11) 9(A) , No pain 11:35:52 56 19 99 43.5 116/58(87) NSR 0 (11) 9(A) , No pain 11:40:35 61 14 100 35.2 129/66(102) NSR 0 (11) 9(A) , No pain 11:45:19 60 11 99 39.7 118/61(91) NSR 0 (11) 9(A) , No pain 11:50:02 62 12 99 36.7 124/61(99) NSR 0 (11) 9(A) , No pain 11:54:47 61 13 100 36.7 132/66(102) NSR 0 (11) 9(A) , No pain 11:59:33 59 12 100 39.7 134/60(108) NSR 0 (11) 9(A) , No pain Medications Time Medication Route Dose Verified Delivered Reason Notes Effectiveness by by 11:24:28 0.9% NaCl I.V. 100 Bobby Bobby Per physician bolus ml/hr Susannah Davalos RN RN 11:24:38 Oxygen etCO2 2 Bobby Bobby Per physician Nasal l/min Susannah Davalos cannula RN RN 11:25:31 Heparin Flush added 2 Bobby Bobby used for Bag to bags Susannah Davalos procedure (1000units/500ml field FREY RN NS) 11:25:40 Lidocaine 2% added 20ml Bobby Bobby for local to vial Susannah Davalos anesthetic field FREY RN 11:25:49 Versed I.V. 2 mg Bobby Bobby for sedation Susannah Davalos RN RN 11:25:58 Fentanyl I.V. 100 Bobby Bobby for sedation mcg Susannah Davalos RN RN 11:27:26 Benadryl I.V. 50 mg Bobby Bobby for sedation Susannah Davalos RN RN 11:31:54 Heparin Bolus I.V. 5000 Bobby Bobby for units Susannah Davalos anticoagulation RN tile mason Log Time Note 10:30:01 Red Valenciangoc RT(R) sent for patient. Start room use. 10:44:33 Informed consent obtained and on chart 10:44:36 Admit Source: Other 10:44:59 Diagnostic Cath status Elective 10:45:09 Time tracking: Regular hours (M-F 7:00 - 5:00) 10:45:14 Plan of Care:Hemodynamics will remain stable., Cardiac rhythm will remain stable., Comfort level will be maintained., Respiratory function will remain adequate., Patient/ family verbilizes understanding of procedure., Procedure tolerated without complication., Recovers from procedure without complications.. 10:45:58 Patient received from Pre/Post Procedure Room to CCL 1 Alert and oriented. Tansferred to table in Supine position. 10:45:59 Warm blankets applied, and ricky hugger turned on for patient comfort. 10:45:59 Correct patient and procedure confirmed by team. 10:46:00 ECG and BP/O2 sat monitors applied to patient. 10:46:01 Pre-procedure instructions explained to patient. 10:46:01 Pre-op teaching completed and patient verbalized understanding. 10:46:02 Family in waiting room. 10:46:03 Patient NPO since Midnight. 10:50:58 Vital chart was started 10:50:59 Baseline sample Acquired. 10:51:05 Rhythm: sinus rhythm 10:51:06 Full Disclosure recording started 10:51:27 H&P Date Dictated: 08/02/2018 New H&P dictated by physician.. 10:51:33 Patient allergic to No known allergies 10:51:34 Is the patient allergic to Iodine/contrast media? No. 10:51:35 Is patient on blood thinner?Yes 10:51:37 ACC The patient was administered the following blood thiners within the last 24 hours: ACCPlavix 10:51:39 Patient diabetic? No. 10:51:44 Previous problem with sedation/anesthesia? No ? 10:51:46 Snore? No 10:51:47 Sleep apnea? No 10:51:47 Deviated septum? No 10:51:48 Opens mouth fully? Yes 10:51:49 Sticks out tongue? Yes 10:51:51 Airway obstruction? No ? 10:51:57 Dentures? Yes in tight 10:52:02 Pre procedure: right dorsailis pedis pulse 2+ Normal; easily identifiable; not easily obliterated 10:52:04 Patient pain scale 0/10 ?. 10:52:42 IV patent on arrival in left antecubital with 0.9% NaCl at O. 10:54:54 Lab Result : BUN 17 mg/dl 10:54:54 Lab Result : Creatinine 1.2 mg/dl 10:54:54 Lab Result : Hemoglobin 15.6 g/dl 10:54:54 Lab Result : Hematocrit 43.3 % 10:54:58 Lab results completed and on chart. 10:55:12 Right groin area was prepped with chlora-prep and draped in sterile fashion 10:55:13 Alarms reviewed by R. N. 10:55:13 Sharps counted by scrub and verified by R.N. 10:55:16 Use device set Femoral Dx 10:55:17 ACIST Syringe (11567) opened to sterile field. 10:55:17 Bag Decanter (2002S) opened to sterile field. 10:55:19 Medline Cath Pack ([id number]) opened to sterile field. 10:55:21 ACIST Hand Control (21616) opened to sterile field. 10:55:21 ACIST Manifold (39771) opened to sterile field. 10:55:23 Tegaderm 4 x 4 (1626W) opened to sterile field. 10:55:25 SHEATH Prelude 5Fr 0.035 (AOR-2K-74-035) opened to sterile field. 10:55:26 DIAGNOSTIC Multipack 5Fr catheter set (MN4809) opened to sterile field. 10:55:28 DIAGNOSTIC WIRE .035 260cm J wire (977385) opened to sterile field. 11:14:51 Physician arrived 11:14:51 --------ALL STOP TIME OUT------ 11:14:52 Final Timeout: patient, procedure, and site verified with staff and physician. All members of the team are in agreement. 11:14:53 Right groin site verified by team. 11:14:56 Physical assessment completed. ASA score P 2 - A patient with mild systemic disease as per Wyatt Franks MD. 11:14:58 Sedation plan: IV Moderate Sedation Medication:Versed, Fentanyl 11:24:28 0.9% NaCl 100 ml/hr I.V. bolus was administered by Bobby Davalos RN; Per physician; 11:24:38 Oxygen 2 l/min etCO2 Nasal cannula was administered by Bobby Davalos RN; Per physician; 11:25:31 Heparin Flush Bag (1000units/500ml NS) 2 bags added to field was administered by Bobby Davalos RN; used for procedure; 11:25:40 Lidocaine 2% 20ml vial added to field was administered by Bobby Davalos RN; for local anesthetic; 11:25:49 Versed 2 mg I.V. was administered by Bobby Davalos RN; for sedation; 11::58 Fentanyl 100 mcg I.V. was administered by Bobby Davalos RN; for sedation; 11:27:26 Benadryl 50 mg I.V. was administered by Bobby Davalos RN; for sedation; 11:27:33 Procedure started. 11:27:35 Local anesthetic to right femoral artery with Lidocaine 2% by Wyatt Franks MD.INITIAL ACCESS ONLY 11:27:41 A 5 Fr sheath was inserted into the Right Femoral artery 11:28:50 A MULTIPACK 3DRC 5Fr catheter was advanced over the wire and used for Procedure. 11:31:15 Rt Iliac angiography performed. 11:31:44 SHEATH 6FR Brite Tip 35cm (809101M) opened to sterile field. 11:31:46 GLIDE WIRE Super Stiff Angled 260cm (BG4705) opened to sterile field. 11:31:47 SHEATH Prelude 6Fr 0.035 (DPG-2V-25-035) opened to sterile field. 11:31:54 Heparin Bolus 5000 units I.V. was administered by Bobby Davalos RN; for anticoagulation; 11:31:56 Catheter removed. 11:32:02 glide wire advanced. 11:32:11 Sheath upsized to a 6 Fr Mid-Length. 11:32:15 Wire advanced across lesion. 11:32:44 INFLATOR Merit BasixCompak (UG0121) opened to sterile field. 11:33:37 Procedure type changed to Cath procedure, Diagnostic procedure, LHC, LHC w/Coronaries w/Grafts, FFR/IVUS, Intra-Coronary IVUS Initial, Sedation Charges, Moderate Sedation up to 15 minutes, PCI procedure, AMI/SVG/INVESTIGATIVE AGENT PTCA or Stent, SVG-BMS/BLANCO Initial, Peripheral Cath Diagnostic Procedure, Boy'S Adviser Peripheral Procedures, Qlega-Noptxuv-Ojp-Off, Peripheral vascular Intervention, Stent, Stent Iliac w/plasty Initial 11:34:13 Place stent Inflation Number: 1 A WHITNEY 7 x 29 x 135 stent ([id number]) was prepped and advanced across the Proximal Common Iliac, Left. The stent was deployed at 11 MARKELL for 0:10 (min:sec). 11:34:18 Stent catheter was removed intact over wire. 11:34:44 A MULTIPACK Pigtail 5 Fr catheter was advanced over the wire and used for Procedure. 11:34:45 glide wire removed. 11:35:35 Abdominal angiogram w/ runoff was performed. 11:35:38 Right leg runoff performed. 11:36:50 LV gram done using HOFF 11:36:52 Injector settings: Ml/sec: 10, Volume: 20, 11:36:57 EF : 30 % 11:36:58 Catheter exchanged over wire. 11:37:02 A MULTIPACK JL 4.0 5Fr catheter was advanced over the wire and used for Procedure. 11:37:21 LCA angiography performed. 11:38:55 Catheter exchanged over wire. 11:39:08 A DIAGNOSTIC AR 2 MOD 5 Fr catheter (201689C) was advanced over the wire and used for Procedure. 11:40:22 GUIDE 6FR XBLAD 3.5 catheter ([id number]) opened to sterile field. 11:40:51 SVG to RCA angiography performed. 11:40:54 RCA angiography performed. 11:41:02 CHOICE PT Extra Support 182cm wire ([id number]) opened to sterile field. 11:41:09 GUIDE 6FR AR 2.0 catheter ([id number]) opened to sterile field. 11:41:14 Ogden Chaf[place] Eagleye IVUS Catheter (54869Z) opened to sterile field. 11:41:22 Catheter exchanged over wire. 11:41:27 6 Fr ar 2 guide catheter was inserted over the wire 11:43:33 choice pt es wire advanced. 11:46:30 IVUS catheter advanced over wire. 11:46:39 IVUS pass to RCA lesion performed. 11:46:40 IVUS catheter removed over wire. 11:47:54 Place stent Inflation Number: 1 A MICHELINE RX 4.5 x 18 stent ([id number]) was prepped and advanced across the Aorta Right -> Dist RCA1. The stent was deployed at 15 AMRKELL for 0:10 (min:sec). 11:48:08 Stent catheter was removed intact over wire. 11:49:44 Place stent Inflation Number: 1 A MICHELINE RX 4.5 x 12 stent ([id number]) was prepped and advanced across the Aorta Right -> Dist RCA. The stent was deployed at 15 MARKELL for 0:10 (min:sec). 11:50:24 Stent catheter was removed intact over wire. 11:50:25 Wire removed. 11:50:25 Guide catheter removed. 11:50:42 Sheath upsized to a 6 Fr Short. 11:50:46 EXOSEAL 6Fr (EX600) opened to sterile field. 11:50:53 Sheath removed intact; hemostasis achieved with Exoseal to the Right Femoral artery. 11:50:55 Procedure ended.(Physican Out) 11:53:42 Fluoroscopy time 06.40 minutes. 11:53:50 Flurop Dose total: 1007 11:53:50 Fluoroscopy dose: 1007 mGy 11:54:05 Contrast amount:Isovue 300 182ml. 11:54:07 Sharps counted by scrub and verified by R.N. 11:54:11 Insertion/operative site no bleeding no hematoma. 11:54:14 Post-op/insertion site Right Femoral artery dressed using a 4 x 4 and Tegaderm. 11:54:18 Post right femoral artery:stable, soft, clean and dry 11:54:20 Post Procedure Pulses reassessed and unchanged 11:56:30 Post-procedure physical assessment completed. ASA score P 2 - A patient with mild systemic disease as per Wyatt Franks MD. 11:57:14 Post procedure rhythm: unchanged. 11:57:16 Estimated blood loss: 10 ml 11:57:20 Post procedure instruction explained to patient.Patient verbalizes understanding. 11:57:20 Patient needs reinforcement of post procedure teaching. 11:57:21 Procedure and supply charges have been captured, reviewed, submitted and are correct. 11:59:20 Procedure Complication : No complications 11:59:23 Vital chart was stopped 11:59:24 See physician's report for complete and final results. 11:59:26 Report given to Pre/Post Procedure Room. 11:59:29 Patient transfered to Pre/Post Procedure Room with Stretcher. 11:59:30 Procedure ended. 11:59:30 Full Disclosure recording stopped 11:59:35 End room use (Document Last) Intervention Summary Intervention Notes Time ActionType Lesion and Equipment Used Action# Pressure Duration Attributes 11:34:13 Place stent Proximal WHITNEY 7 x 29 1 11 00:10 Common x 135 stent Iliac, Left ([id number]) 11:47:54 Place stent Aorta Right MICHELINE RX 4.5 x 1 15 00:10 -> Dist 18 stent RCA1 ([id number]) 11:49:44 Place stent Aorta Right MICHELINE RX 4.5 x 1 15 00:10 -> Dist RCA 12 stent ([id number]) Device Usage Item Name Manufacture Quantity Catalog Number Hospital Part Current Minimal Lot# / Charge Number Stock Stock Serial# Code ACIST Syringe Acist 1 25651 954047 640979 948508 20 (53128) [employer] Bag Decanter Microtek 1 2001S 899504 22477 263954 5 (2002S) Medical Inc. Medline Cath Cardinal 1 [id number] 668922 54779 622457 5 Pack Health ([id number]) ACIST Hand Acist 1 27051 592929 736680 710851 5 Control (83977) [employer] Inc ACIST Manifold Acist 1 40919 596042 468652 775966 5 (20935) [employer] Inc Tegaderm 4 x 4 3M 1 1626W 008776 710515 006619 5 (1626W) SHEATH Prelude Merit 1 MOW-3D-20-035 166763 630057 298418 5 5Fr 0.035 Medical (LJO-5H-18-035) DIAGNOSTIC Cardinal 1 OD4410 568324 02774 585700 30 Multipack 5Fr Health catheter set (BY5141) DIAGNOSTIC WIRE St Shoaib 1 845048 222530 841652 571374 30 .035 260cm J wire (040190) MULTIPACK 3DRC Cardinal 1 595482 5 5Fr catheter Health SHEATH 6FR Cardinal 1 [id number] 587761 158763 431809 1 Brite Tip 35cm Health (796077C) GLIDE WIRE Terumo 1 KO7981 717901 673682 413014 5 Super Stiff Angled 260cm (AO9999) SHEATH Prelude Merit 1 AWF-3G-62-35 242859 6340922 445946 5 6Fr 0.035 Medical (HHX-1V-87-035) INFLATOR Merit Merit 1 EN4704 709857 758256 642991 15 BasixCompak Medical (FC8912) WHITNEY 7 x 29 Cardinal 1 [id number] 562664 691080 5 x 135 stent Health ([id number]) MULTIPACK Cardinal 1 894365 5 Pigtail 5 Fr Health catheter MULTIPACK JL Cardinal 1 473734 5 4.0 5Fr Health catheter DIAGNOSTIC AR 2 Cardinal 1 879561V 456682 686531 656682 20 MOD 5 Fr Health catheter (590007K) GUIDE 6FR XBLAD Cardinal 1 [id number] 085594 734867 806818 10 3.5 catheter Health (24322915) CHOICE PT Extra Mobe[place]ie 1 [id number] 471821 646105 019992 5 Support 182cm Scientific wire (0970927X8) GUIDE 6FR AR Medtronic 1 [id number] 763141 40971 186645 1 2.0 catheter (RZ2JB09) Ogden Ogden 1 47302L 839577 354728 538803 8 [place] Eagleye IVUS Catheter (01730D) MICHELINE RX 4.5 x Medtronic 1 [id number] 177846 7658920 119353 5 [id number] 18 stent ([id number]) MICHELINE RX 4.5 x Medtronic 1 [id number] 410892 3552613 117064 5 [id number] 12 stent ([id number]) EXOSEAL 6Fr Cardinal 1 EX600 971826 900662 018739 10 (EX600) Health Signature Audit [place] Time Signature Unsigned Intra-Procedure 08/02/2018 Abraham King 12:01:43 PM RT(R) Signatures Monitor : Abraham King RT Signature : Date : Time : [facility] [address] [place] [address]
--- NOTE | ~2018-08-02 | OP ---
PATIENT NAME: BURKE CORTEZ MEDICAL RECORD: [id number] :55 LOCATION:D.CAT ADMISSION DATE: SURGEON: PRABHA LAY MD DATE OF OPERATION: 08/02/2018 PROCEDURE: 1. PTCA stent vein graft to RCA. 2. Intravascular ultrasound vein graft to RCA. 3. Left heart catheterization. 4. Selective coronary angiography. 5. Vein graft angiography. INDICATION: Angina and coronary artery disease. PROCEDURE IN DETAIL: After informed consent was obtained and after a detailed description of risks, benefits as well as alternative therapies, the patient elected to proceed with angiogram and angioplasty. The right femoral area had a preexisting sheath from peripheral intervention. All catheters exchanged through this sheath. FINDINGS: Left ventriculogram was performed in standard 30-degree HOFF view, reveals global hypokinesis throughout all segments. Overall ejection fraction is 30%. SELECTIVE CORONARY ANGIOGRAPHY: 1. Left main is with no significant angiographic disease. 2. Left anterior descending is totally occluded in the mid vessel. This is a long total occlusion. The distal LAD fills via left to left collaterals. There is a large diagonal system that has 80% to 90% stenosis in the proximal aspect. 3. Left circumflex is totally occluded in the mid vessel. This is chronic total occlusion. 4. Vein graft to circumflex is closed. 5. HUMPHREY to the LAD is atretic and nonfunctional. 6. Right coronary artery is totally occluded in mid vessel. 7. Vein graft to the right coronary artery has 2 areas of 70% to 75% stenosis confirmed by intravascular ultrasound. PTCA STENT OF THE RCA VEIN GRAFT: The stent used was 4.5 x 18 mm Harmeet and 4.5 x 12 mm Harmeet. Result was 0% residual stenosis. OVERALL IMPRESSION: Successful percutaneous transluminal coronary angioplasty stent of the vein graft to the right coronary artery going from 75% initial stenosis to 0% residual. PLAN: For PTCA stent of the LAD diagonal in the near future. TRANSINT:[id number] Voice Confirmation ID: [id number] DOCUMENT ID: [id number] OPERATIVE REPORT [id number] BURKE CORTEZ PRABHA LAY MD at 1729 CC: [id number] DICTATION DATE: 08/02/18 1157 ACCESS COORDINATOR: 08/02/18 1218 DEP CLI 08/03/18 [facility] [address] [place] [address]
[~2018-08-02 08:39] MED LIST changes: -PLAVIX75 MG PO
[2018-08-02] MEDS ORDERED: PLAVIX75 MG PO (09:04)
[2018-08-02 09:11] VITALS: BP 159/61; BMI 27.3
[2018-08-02 09:23] LABS: BASOPHILS 0.5 % (0-2); EOSINOPHILS 1.6 % (0-7); HEMATOCRIT 43.3 % (42.0-54.0); HEMOGLOBIN 15.6 g/dL (13.5-17.5); IMMATURE GRANULOCYTES 0.2 % (0-5); LYMPHOCYTES 15.3 % (15-50); MCH 32.5 pg (26.0-34.0); MCV 90.2 fL (80.0-100.0); MEAN PLATELET VOLUME 10.1 fL (7.4-10.4); NEUTROPHILS 76.4 % (40-80); PLATELET COUNT 224 10x3/uL (130-400); RDW 12.5 % (11.5-14.5); WBC 8.9 10x3/uL (4.8-10.8)
[2018-08-02 10:23] LABS: ANION GAP 10.4 mmol/L (8-16); CALCIUM 8.7 mg/dL (8.5-10.1); CARBON DIOXIDE 33.3 mmol/L (21.0-32.0); CREATININE - SERUM 1.2 mg/dL (0.6-1.3); POTASSIUM - SERUM 3.7 mmol/L (3.5-5.1)
[2018-08-02 21:20] VITALS: BP 137/64
[2018-08-03 01:38] VITALS: Ht 177.8 cm; Wt 86.4 kg
[2018-08-03 05:51] VITALS: BP 138/63
[2018-08-03 08:07] VITALS: BP 141/64
[2018-08-03 11:02] VITALS: BP 138/62
== END 2018-08-03 17:00 | disposition home or self-care (01) ==
LOC: D.CATH 08:39 → D.M2 08:39 → D.CATH 12:00 → D.M2 17:55 → D.CLR 08-03 13:37 → D.CATH 08-03 17:00
PROVIDERS: Internal Medicine Interventional Cardiology
DX: I25.110 Atherosclerotic heart disease of native coronary artery with unstable angina pectoris (principal); I25.710 Atherosclerosis of autologous vein coronary artery bypass graft(s) with unstable angina pectoris; I25.82 Chronic total occlusion of coronary artery; I10 Essential (primary) hypertension; E78.5 Hyperlipidemia, unspecified; I42.9 Cardiomyopathy, unspecified; I70.211 Atherosclerosis of native arteries of extremities with intermittent claudication, right leg; Z01.812 Encounter for preprocedural laboratory examination

== ENCOUNTER → 2018-09-07 09:05 | Outpatient (CLI) | payer MEDICAID ==
[~2018-09-07 09:05] MED LIST changes: +PLAVIX75 MG PO
== END | disposition home or self-care (01) ==
LOC: D.US 08:30
DX: R10.9 Unspecified abdominal pain (principal)

== ENCOUNTER → 2019-02-22 13:19 | Outpatient (CLI) | payer BC ==
--- NOTE | 2019-02-25 15:12 | EC ---
PATIENT:BURKE CORTEZ DATE OF SERVICE: 02/22/19 SEX: M MEDICAL RECORD: [id number] DATE OF : 55 [facility] AGE [facility] PAT[facility]: 63 ADMISSION DATE: 02/22/19 REFERRING PHYSICIAN: INTERPRETING PHYSICIAN: PRABHA FRANKS MD ECHOCARDIOGRAM REPORT ECHO CHARGES 4 ECHO COMPLETE Date: 02/22/19 CLINICAL DIAGNOSIS: EF/CARDIOMYOPATHY ECHOCARDIOGRAPHIC MEASUREMENTS (adult normal given) AC root (d.<3.7cm) 3.7 cm LV Septum d (<1.2 cm> 1.2 cm Valve Excursion 2.1 cm LV Septum (systole) 1.3 cm Left Atria (s.<4.0cm> 5.1 cm LVPW d(<1.2cm) 1.5 cm RV (d.<2.3cm) 2.9 cm LVPW (sytole) 1.7 cm LV diastole(<5.6CM) 6.4 cm MV E-F(>70mm/sec) cm LV systole 5.3 cm LVOT Diameter 2.0 cm MV exc.(>10mm) 1.2 cm Est.ejection fraction (50-75%) % DOPPLER: LVIT cm/sec A 78.0 cm/sec E 60.0 cm/sec LA cm/sec RVSP 19 mmHg LVOT 80 cm/sec AOP1/2T m/s Asc. Ao 95 cm/sec RVOT cm/sec RA cm/sec PA cm/sec AV Gradient Peak 3.59 mmHg AV Mean 1.70 mmHg AV Area 2.5 cm MV Gradient Peak 2.75 mmHg MV Mean 1.00 mmHg MV Area cm COMMENTS: Clerical Production Worker: Agustina SIMMS Foam Rubber Molder: 1 Dr. Franks TAPE# PACS Pericardial Effusion N DATE OF SERVICE: 02/22/2019 PROCEDURE: Echocardiogram. FINDINGS: 1. Left ventricular chamber size is mildly dilated. Left ventricular systolic function is moderately reduced, overall ejection fraction of 35% to 40%. 2. Left atrium is enlarged at 5.1 cm. Right atrium and right ventricular chamber sizes are as well mildly dilated. 3. Valvular structures have normal structure and motion. ECHOCARDIOGRAM REPORT [id number] BURKE CORTEZ 4. Doppler interrogation reveals mild mitral regurgitation, trace tricuspid regurgitation, no other valvular insufficiency or stenosis. Pulmonary systolic pressure is normal estimated at 19 mmHg. 5. No evidence of pericardial effusion or left ventricular thrombus. TRANSINT:[id number] Voice Confirmation ID: [id number] DOCUMENT ID: [id number] PRABHA FRANKS MD at 1512 CC: [id number] DICTATION DATE: 02/23/19 1129 TOOTH GRINDER: 02/23/19 1235 DEP CLI 02/22/19 [place] [id number] [place] [id number]
== END | disposition home or self-care (01) ==
LOC: D.HCCARDIO 13:19
PROVIDERS: ATTEND Internal Medicine Interventional Cardiology
DX: I48.0 Paroxysmal atrial fibrillation (principal)